=== PATIENT | male | born 1970 | race Caucasian/White ===

== ENCOUNTER 2017-07-20 08:09 | Emergency (ER) | payer SELFPAY ==
--- NOTE | 2017-07-20 09:14 | RAD ---
FRONTAL RADIOGRAPH PELVIS: Date: 07-20-17 Comparison: None. History: Fall, trauma, pain. FINDINGS: The pelvic ring appears intact. There is no widening of the sacroiliac joints or the pubic symphysis. The femoral heads project normally over their respected acetabulum. There is no displaced fracture s een. Spina bifida occulta is suspected at L5 with a transitional L5 vertebral body noted. IMPRESSION: No displaced fracture noted. POS: [facility]
[2017-07-20] MEDS ORDERED: Ibuprofen 200 MG TAB ONE (09:54)
== END 2017-07-20 10:05 | disposition home or self-care (01) ==
LOC: ERS 08:09
DX: S30.0XXA Contusion of lower back and pelvis, initial encounter (principal); I10 Essential (primary) hypertension; F17.210 Nicotine dependence, cigarettes, uncomplicated; Z79.82 Long term (current) use of aspirin; W10.9XXA Fall (on) (from) unspecified stairs and steps, initial encounter
CPT/HCPCS: 72170

== ENCOUNTER 2019-01-12 07:31 | Outpatient (CLI) | payer OTHER ==
[2019-01-12] MEDS ORDERED: Iopamidol 370 76% 100 ML VIAL ONE ×2 (09:00)
--- NOTE | 2019-01-12 09:24 | CT ---
CT ABDOMEN AND PELVIS WITH IV CONTRAST 01/12/2019 CLINICAL INFORMATION: Rectal cancer, colonic mass P COMPARISON: None. Technique: Multiple contiguous axial CT images are obtained through the abdomen and pelvis with IV contrast. Cor onal reformatted images are provided. FINDINGS: Lower Chest: No pulmonary nodule, mass, or pleural effusion is seen in either lung base. Vessels: Vascular calcifications are seen in the iliac arteries. Abdominal aorta is normal in caliber with minimal atherosclerotic plaque present. Abdomen: Portal vein:Patent Gallbladder: Decompressed. Liver: Tiny subcentimeter too small to characterize hypodense lesions in the medial segment left hepa tic lobe as well as in the lateral segment left hepatic lobe. Spleen: within normal limits. Pancreas: within normal limits. Adrenals: within normal limits. Kidneys: A small 1.3 cm fluid attenuation lesion is seen within the superior pole left kidney most co mpatible with a cyst. A tiny subcentimeter too small to characterize hypodense lesion is seen in the superior pole right kidney. Bowel: A definite mass involving the rectum is difficult to delineate; although, there does appear to be mild eccentric thickening present which may correspond to patient's known rectal cancer. However, this would be better evaluated with colonoscopy. Loops of small bowel are normal in caliber. There is suggested mild bowel wall thickening involving proximal loops of jejunum. This is probably attributable to peristalsis. Appendix: The appendix is visualized and normal in caliber. Peritoneum: No ascites or free air; no fluid collection. Mesentery and Retroperitoneum: No enlarged mesenteric or retroperitoneal lymph nodes. Abdominal Wall: within normal limits. Pelvis: Reproductive Organs: No pelvic masses. Pelvis within normal limits. Bladder: within normal limits. Bones: Degenerative changes are seen in the lumbar spine. No suspicious lytic or sclerotic osseous le sions are identified. There is fusion of the left lateral mass of L5 with S1. IMPRESSION: 1. Tiny subcentimeter too small to characterize hypodense lesions left hepatic lobe. 2. Subcentimeter too small to characterize hypodense lesion superior pole right kidney with superior pole left renal cyst. 3. A definite rectal mass is difficult to delineate, but there does appear to be mild eccentric thick ening in the region of the rectum which may correspond to patient's known rectal neoplasm. However, this would be better evaluated with colonoscopy. 4. No evidence of lymphadenopathy. 5. Prominent degenerative changes in the spine.
== END 2019-01-12 07:32 | disposition home or self-care (01) ==
LOC: SCSCT 07:31
PROVIDERS: ATTEND Emergency Medicine
DX: K63.89 Other specified diseases of intestine (principal); K76.9 Liver disease, unspecified; N28.9 Disorder of kidney and ureter, unspecified; N28.1 Cyst of kidney, acquired; M47.816 Spondylosis without myelopathy or radiculopathy, lumbar region
CPT/HCPCS: 74177; Q9967

== ENCOUNTER 2019-02-15 14:17 | Outpatient (CLI) | payer OTHER, SELFPAY ==
--- NOTE | 2019-02-15 15:58 | CT ---
CT CHEST WITH IV CONTRAST: HISTORY: Rectal cancer. Exam requested for staging. FINDINGS: No mediastinal, hilar or axillary mass or lymphadenopathy is seen. There are vascular calcifications without evidence of aneurysmal dilatation of the thoracic aorta. No pleural or pericardial effusions are seen. There is a 13 mm calcified nodule in the left upper lobe. No suspicious nodules are otherwi se seen. There are degenerative changes in the spine. Upper abdominal tomograms are stable compared t o the CT abdomen and pelvis from 01/12/2019. IMPRESSION: No evidence of metastatic disease. POS: [facility]
--- NOTE | 2019-02-16 10:04 | MRI ---
MRI PELVIS WITH AND WITHOUT CONTRAST: Date: 02/15/19 HISTORY: Rectal cancer. COMPARISON: CT abdomen/pelvis 01/12/19. TECHNIQUE: Multiplanar, multisequence MR images were obtained of the pelvis without and with contrast. FINDINGS: There is a mass in the anterior wall of the low rectum. This mass measures 4.4 cm in length. This mas s extends down to approximately 1.5 cm from the anal verge. This mass appears to be full thickness of the wall of the rectum without significant invasion of the mesorectal fat. There is a fat plane betw een this mass and the prostate, which was not definitely seen on the prior CT. No enlarged pelvic lymph nodes are seen. This mass abuts the posterior mesorectal fascia along the pe lvic floor as this mass is very low lying. No marrow signal abnormality is appreciated. IMPRESSION: Very low rectal cancer abuts the mesorectal fascia and is very near the anal verge. This is a T3aN0 l esion. POS: [facility]
== END 2019-02-15 14:18 | disposition home or self-care (01) ==
LOC: TBSIIMAG 14:17
PROVIDERS: ATTEND Internal Medicine Hematology & Oncology
DX: C20 Malignant neoplasm of rectum (principal)
CPT/HCPCS: 71260; 72197

== ENCOUNTER 2019-02-21 11:37 | Outpatient (CLI) | payer OTHER, SELFPAY ==
[2019-02-21 14:32] LABS: Anion Gap 12 mmol/L (10-20); BUN (Urea Nitrogen) 8 mg/dL (8.9-20.6); Calc. Creatinine Clearance 0 mL/min (70-130); Calcium 9.5 mg/dL (7.8-10.44); Carbon Dioxide 34 mmol/L (22-29); Chloride 87 mmol/L (98-107); Estimated GFR-MDRD Greater than 90; Glucose 68 mg/dL (70-105); Potassium 3.7 mmol/L (3.5-5.1); Sodium 129 mmol/L (136-145)
--- NOTE | 2019-02-21 15:35 | HP ---
HISTORY OF PRESENT ILLNESS: Milton Benoit is a 48-year-old male patient who Family Practice has seen and colonoscopy performed revealed a rectal mass 6 to 8 cm from the anal verge. Biopsy revealed malignant-appearing cells without definite invasion. Yesterday in the office, I saw him and I was able to break some fragments of polypoid tissue from the rectal mass and did a core biopsy and pathology reveals invasive adenocarcinoma. The patient has had a CAT scan chest, abdomen, and pelvis, as well as MRI of the pelvis revealing T3a N0 disease. He has seen Dr. Theodore and Dr. Perez, and plan is for neoadjuvant active therapy and plan is to place a MediPort to facilitate this. He understands risks and benefits of procedure. We will plan this under IV sedation or local anesthesia as an outpatient. MEDICATIONS: Losartan daily. PAST SURGICAL HISTORY: None, except for recent colonoscopy. SOCIAL HISTORY: Tobacco, 1-1/2 packs per day. Have encourage cessation. Alcohol, socially. The patient is unemployed. REVIEW OF SYSTEMS: Ten-point noncontributory. PHYSICAL EXAMINATION: VITAL SIGNS: Weight 175 pounds, 6 feet, 23 BMI. Blood pressure 136/81, pulse 83, temperature 98 degrees. HEAD, EARS, EYES, NOSE AND THROAT: Unremarkable. LUNGS: Clear to auscultation. CARDIAC: Regular rate and rhythm without murmur or gallop. ABDOMEN: Soft and nontender. RECTAL EXAM: Reveals a rectal mass anteriorly. There is a shelving edge. This is the full length of my examining finger from the anal verge, probably 6 to 8 cm. Anoscopy reveals some polypoid tissue on the surface, some of which was broke off and core biopsies obtained. Pathology revealing the above results. EXTREMITIES: Unremarkable. Groins without lymphadenopathy. ASSESSMENT AND PLAN: Rectal cancer. Plan, neoadjuvant therapy with chemoradiation therapy with Dr. Minh Theodore and Dr. Perez. We will plan placement of a MediPort to facilitate this. I will see him postoperatively after alejandro-adjunctive therapy for definitive low anterior resection. Job ID: [id number]
== END 2019-02-21 11:38 | disposition home or self-care (01) ==
LOC: LABBT 11:37
PROVIDERS: ATTEND Specialist
DX: Z01.818 Encounter for other preprocedural examination (principal); C20 Malignant neoplasm of rectum
CPT/HCPCS: 80048; 93005; 93010

== ENCOUNTER 2019-02-24 09:02 | Day surgery (SDC) | payer OTHER, SELFPAY ==
[2019-02-21 13:18] VITALS: BMI 23.7
[2019-02-24] MEDS ORDERED: Glycopyrrolate 0.4 MG/ 2 ML VIAL ONE (10:10)
[2019-02-24] MEDS ORDERED: Succinylcholine Chloride 20 MG/ML 10 ml SYRINGE FS ONE (10:10)
[2019-02-24] MEDS ORDERED: ePHEDrine/0.9% NaCl/PF SYRINGE 50 mg/10 ml ONE (10:10)
[2019-02-24] MEDS ORDERED: Rocuronium Bromide 10 MG/ML (10ML VIAL) ONE (10:10)
[2019-02-24] MEDS ORDERED: PROPOFOL 200 MG/20 ML VIAL ONE (10:10)
[2019-02-24] MEDS ORDERED: Lidocaine 1% PF 5 ML VIAL ONE (10:10)
[2019-02-24] MEDS ORDERED: Ondansetron PF 4 MG/2 ML Vial ONE (10:10)
[2019-02-24] MEDS ORDERED: Lidocaine 2% Jelly 5 ML TUBE ONE (10:33)
[2019-02-24] MEDS ORDERED: Fentanyl 100 MCG/2 ML VIAL ONE (10:33)
[2019-02-24] MEDS ORDERED: Lidocaine 2% PF 5 ML VIAL ONE (10:40)
[2019-02-24] MEDS ORDERED: Bupivacaine HCl 0.5%/Epinephrine 1:200,000/PF 30 ml Vial ONE (10:40)
--- NOTE | 2019-02-24 12:40 | OP ---
DATE OF PROCEDURE: 02/24/2019 PREOPERATIVE DIAGNOSIS: Rectal cancer in need of antineoplastic chemotherapy access. POSTOPERATIVE DIAGNOSIS: Rectal cancer in need of antineoplastic chemotherapy access. PROCEDURES PERFORMED: Right subclavian vein MediPort, low-profile PowerPort, fluoroscopy use. ANESTHESIA: General LMA (reflux) and 0.5% Marcaine with epinephrine, 30 mL mixed with 2% Xylocaine, 10 mL. DESCRIPTION OF PROCEDURE: The patient was taken to the operating room where under general anesthesia, neck and chest prepared with ChloraPrep and draped in routine fashion. Local anesthetic was infiltrated in the skin and subcutaneous tissue about the operative site. Infraclavicular approach used to cannulate the right subclavian vein and J-wire threaded, trocar catheter removed. Skin site was enlarged sharply and a subcutaneous pocket created with blunt and sharp dissection using cautery for hemostasis. Dilator and port sheath placed with J-wire in superior vena cava and dilator and J-wire removed, catheter tailored to length under fluoroscopic visualization, placing the tip in the optimal position in the superior vena cava. The catheter connected to the port, placed in subcutaneous pocket, secured with 2 interrupted suture of 3-0 Prolene. Subcutaneous tissue was approximated with 3-0 Monocryl, skin with subdermal 4-0 Monocryl and Dumfries glue applied. Fluoroscopic images revealed good MediPort and catheter placement. MediPort accessed with a Diamond needle, aspirating blood and flushed with heparinized saline solution. The patient tolerated the procedure well. Job ID: [id number]
--- NOTE | 2019-02-24 13:06 | RAD ---
XR Chest 1 View Portable History: MediPort placement Comparison: Chest CT February 15, 2019 Findings: Uncomplicated placement port catheter tip in the inferior SVC. Left upper lobe calcified gr anuloma. Mild reverse S-shaped scoliosis thoracic spine. Impression: Uncomplicated port catheter placement.
== END 2019-02-24 14:10 | disposition home or self-care (01) ==
LOC: SDC 09:02
PROVIDERS: ATTEND Specialist
PROC: 02HV33Z Insertion of Infusion Device into Superior Vena Cava, Percutaneous Approach (ICD-10-PCS; principal; 2019-02-24)
DX: C20 Malignant neoplasm of rectum (principal)
CPT/HCPCS: 71045; C1788; J0670; J0690; J1642; J2001; J3010

== ENCOUNTER 2019-03-07 09:50 | Day surgery (SDC) | payer SELFPAY ==
[~2019-03-07 09:50] MED LIST: DEXTROSE 5% IVPB SCH; Dexamethasone 10 MG in Sodium Chloride 0.9% 50 ML IVPB SCH; FLUOROURACIL IVPB SCH; LEUCOVORIN CALCIUM IVPB SCH; Leucovorin Calcium 350 MG, Leucovorin Calcium 50 MG in Dextrose 5% in Water 50 ML IVPB SCH; OXALIPLATIN IVPB SCH; Palonosetron HCl 0.25 MG in Sodium Chloride 0.9% 50 ML IVPB SCH; WATER IVPB SCH
[2019-03-07 10:55] VITALS: BP 145/80; TEMP 98.8
== END 2019-03-07 14:49 | disposition home or self-care (01) ==
LOC: ONC/OP 09:50
PROVIDERS: ATTEND Internal Medicine Hematology & Oncology
DX: Z51.11 Encounter for antineoplastic chemotherapy (principal); C20 Malignant neoplasm of rectum
CPT/HCPCS: 96367; 96375; 96413; 96415; 96417; J0640; J1100; J2469; J7070; J9190; J9263

== ENCOUNTER 2019-03-21 10:12 | Day surgery (SDC) | payer SELFPAY ==
[~2019-03-21 10:12] MED LIST changes: -LEUCOVORIN CALCIUM IVPB SCH
[2019-03-21] MEDS ORDERED: Sodium Chloride 0.9% 10 ML ONE (10:52)
[2019-03-21 11:41] VITALS: BP 127/66; TEMP 98.9
== END 2019-03-21 14:32 | disposition home or self-care (01) ==
LOC: ONC/OP 10:12
PROVIDERS: ATTEND Internal Medicine Hematology & Oncology
DX: Z51.11 Encounter for antineoplastic chemotherapy (principal); C20 Malignant neoplasm of rectum
CPT/HCPCS: 96367; 96375; 96413; 96415; 96417; J0640; J1100; J1642; J2469; J7070; J9190; J9263

== ENCOUNTER 2019-04-04 10:37 | Day surgery (SDC) | payer OTHER ==
[2019-04-04] MEDS ORDERED: Sodium Chloride 0.9% 20 ML ONE (10:52)
[2019-04-04 13:36] VITALS: BP 149/73; TEMP 98.3
== END 2019-04-04 15:13 | disposition home or self-care (01) ==
LOC: ONC/OP 10:37
PROVIDERS: ATTEND Internal Medicine Hematology & Oncology
DX: Z51.11 Encounter for antineoplastic chemotherapy (principal); C20 Malignant neoplasm of rectum
CPT/HCPCS: 96367; 96375; 96413; 96415; 96416; 96417; J0640; J1100; J1642; J2469; J7070; J9190; J9263

== ENCOUNTER 2019-04-20 10:29 | Day surgery (SDC) | payer OTHER ==
[2019-04-20] MEDS ORDERED: Sodium Chloride 0.9% 20 ML ONE (10:35)
[2019-04-20 11:52] VITALS: BP 177/92; TEMP 98.7
== END 2019-04-20 14:47 | disposition home or self-care (01) ==
LOC: ONC/OP 10:29
PROVIDERS: ATTEND Internal Medicine Hematology & Oncology
DX: Z51.11 Encounter for antineoplastic chemotherapy (principal); C20 Malignant neoplasm of rectum
CPT/HCPCS: 96366; 96375; 96413; 96415; 96416; 96417; J0640; J1100; J2469; J7070; J9190; J9263

== ENCOUNTER 2019-05-03 12:28 | Day surgery (SDC) | payer OTHER ==
[2019-05-03] MEDS ORDERED: Sodium Chloride 0.9% 30 ML ONE (12:45)
[2019-05-03 15:40] VITALS: BP 118/70; TEMP 98.6
== END 2019-05-03 15:58 | disposition home or self-care (01) ==
LOC: ONC/OP 12:28
PROVIDERS: ATTEND Internal Medicine Hematology & Oncology
DX: Z51.11 Encounter for antineoplastic chemotherapy (principal); C20 Malignant neoplasm of rectum
CPT/HCPCS: 96367; 96375; 96413; 96415; 96417; J0640; J1100; J2469; J7070; J9190; J9263

== ENCOUNTER 2019-05-17 10:50 | Day surgery (SDC) | payer OTHER ==
[2019-05-17] MEDS ORDERED: Sodium Chloride 0.9% 20 ML ONE (11:03)
[2019-05-17 11:39] VITALS: BP 122/70; TEMP 98.6
== END 2019-05-17 15:30 | disposition home or self-care (01) ==
LOC: ONC/OP 10:50
PROVIDERS: ATTEND Internal Medicine Hematology & Oncology
DX: Z51.11 Encounter for antineoplastic chemotherapy (principal); C20 Malignant neoplasm of rectum
CPT/HCPCS: 96367; 96375; 96413; 96415; 96417; J0640; J1100; J2469; J7070; J9190; J9263

== ENCOUNTER 2019-05-31 11:01 | Day surgery (SDC) | payer OTHER ==
[~2019-05-31 11:01] MED LIST changes: -Dexamethasone 10 MG in Sodium Chloride 0.9% 50 ML IVPB SCH
[2019-05-31] MEDS ORDERED: Sodium Chloride 0.9% 20 ML ONE (11:04)
[2019-05-31 15:57] VITALS: BP 137/88; TEMP 98.6
== END 2019-05-31 16:09 | disposition home or self-care (01) ==
LOC: ONC/OP 11:01
PROVIDERS: ATTEND Internal Medicine Hematology & Oncology
DX: Z51.11 Encounter for antineoplastic chemotherapy (principal); C20 Malignant neoplasm of rectum
CPT/HCPCS: 96375; 96413; 96415; 96417; J0640; J1100; J2469; J7070; J9190; J9263

== ENCOUNTER 2019-06-14 12:05 | Day surgery (SDC) | payer OTHER ==
[2019-06-14] MEDS ORDERED: LEUCOVORIN CALCIUM IVPB SCH (12:30)
[2019-06-14] MEDS ORDERED: DEXTROSE 5% IVPB SCH (12:30)
[2019-06-14] MEDS ORDERED: WATER IVPB SCH (12:30)
[2019-06-14] MEDS ORDERED: Sodium Chloride 0.9% 20 ML ONE (12:36)
[2019-06-14 17:40] VITALS: BP 118/72; TEMP 98.6
== END 2019-06-14 17:42 | disposition home or self-care (01) ==
LOC: ONC/OP 12:05
PROVIDERS: ATTEND Internal Medicine Hematology & Oncology
DX: Z51.11 Encounter for antineoplastic chemotherapy (principal); C20 Malignant neoplasm of rectum
CPT/HCPCS: 96367; 96375; 96413; 96415; 96417; J0640; J1100; J2469; J7070; J9190; J9263

== ENCOUNTER 2019-10-27 05:42 | Outpatient (CLI) | payer OTHER ==
[2019-10-27 12:42] LABS: Hemoglobin A1c 4.9 % (4.0-6.0)
[2019-10-27 12:49] LABS: #Lymphocytes 0.6 thou/uL (1.20-3.40); #Monocytes 0.7 thou/uL (0.11-0.59); %Basophils 0.3 % (0.0-1.0); %Eosinophils 0.4 % (0.0-10.0); %Lymphocytes 8.8 % (21.0-51.0); %Monocytes 11.5 % (0.0-10.0); %Neutrophils 78.9 % (42.0-75.0); Hemoglobin 14.5 g/dL (14.0-18.0); Mean Corpuscular HGB CONC 34.6 g/dL (32.0-36.0); Mean Corpuscular Hemoglobin 35.5 pg (27.0-31.0); Mean Platelet Volume 6.6 fL (7.4-10.4); Platelet Count 170 thou/uL (130-400); RBC Distribution Width 11.6 % (11.5-14.5); Red Blood Cell (RBC) Count 4.09 mill/uL (4.70-6.10); White Blood Cell (WBC) Count 6.3 thou/uL (4.8-10.8)
[2019-10-28 12:09] LABS: SARS-CoV-2 MS2 Positive; SARS-CoV-2 N Gene Negative; SARS-CoV-2 S Gene Negative; SARS-CoV-2 orf1ab Negative
== END 2019-10-27 05:43 | disposition home or self-care (01) ==
LOC: LABBT 05:42
PROVIDERS: ATTEND Specialist
DX: Z01.812 Encounter for preprocedural laboratory examination (principal); Z11.59 Encounter for screening for other viral diseases; C20 Malignant neoplasm of rectum; Z72.0 Tobacco use
CPT/HCPCS: 82378; 83036; 85025; 87635; U0003

== ENCOUNTER 2019-10-27 10:30 | Inpatient (IN) | payer OTHER ==
[2019-10-24 14:13] VITALS: BMI 27.1
--- NOTE | 2019-10-26 14:18 | HP ---
HISTORY OF PRESENT ILLNESS: Milton Benoit is a 48-year-old male patient with rectal cancer. I last saw him on 09/07/2019. He has been followed by Dr. Perez and Dr. Theodore. The patient underwent a biopsy, revealing rectal cancer with colonoscopy performed, undergoing MRI on 02/16/2020, revealing T3a N0 rectal cancer with fatty tissue plane between the rectal mass and prostate. On exam, that seemed to be about 4 cm from the anus. The patient smoked at that time a pack a day. He has since quit smoking. He was complaining some dyspnea at the end. The patient had a biopsy that I performed in the office. CT scan, MRI, and chest x-ray obtained by Dr. Theodore. I placed a MediPort. The patient was seen by Dr. Perez, undergoing radiation therapy on 07/10/2019 through 08/18/2019, 39 elapsed days. He completed chemotherapy with Xeloda and FOLFOX. CT scan abdomen in 12/2018 demonstrated densities, too small to characterize liver. He underwent neoadjuvant therapy. The patient used to work [employer] and has been unemployed. Family history is significant for two aunts with breast cancer, two great uncles with throat cancers, a grandfather with lung cancer. His CT scan of the chest and MRI did not reveal any evidence of metastatic disease. Laboratories on 09/06/2019, hemoglobin 13. Comprehensive metabolic profile essentially normal. The patient in the interim has seen Dr. Minh Monsivais with a cardiac stress test with a normal EF, greater than 55%. No ischemia. He is endorsed for further surgery without further workup, will be seen by Cardiology as needed. He has stage IIA T3 N0 M0 adenocarcinoma of the rectum. When I last saw him in the office on 09/07/2019, rectal exam revealed rectal mass at the tip of my examining finger, it is feeling smaller than past exam. He is followed by [facility]. Plan at this time is for mid 10/2019 laparoscopic-assisted low-anterior resection with either abdominoperineal resection versus coloproctostomy with protective ileostomy. We will plan this under general anesthesia and TAP block. Risks of infection, bleeding, reoperation, anastomotic leakage discussed. Questions answered. Encouraged him to completely quit smoking. He will undergo a bowel prep the day prior. MEDICATIONS: 1. Losartan. 2. Chlorthalidone. PAST MEDICAL HISTORY: 1. Hypertension. 2. Rectal cancer. 3. Tobacco use. PAST SURGICAL HISTORY: Noncontributory except for MediPort, rectal biopsy, and colonoscopy. SOCIAL HISTORY: Tobacco, less than one pack per day. Alcohol, socially. REVIEW OF SYSTEMS: Ten-point noncontributory. FAMILY HISTORY: As noted above. REVIEW OF SYSTEMS: As noted above. PHYSICAL EXAMINATION: VITAL SIGNS: Blood pressure 137/80, heart rate 87, temperature 97.9 degrees, weight 197 pounds, height 72 inches. HEAD, EARS, EYES, NOSE, AND THROAT: Unremarkable. LUNGS: Clear to auscultation. CARDIAC: Regular rate and rhythm without murmur or gallop. ABDOMEN: Soft and nontender. EXTREMITIES: Unremarkable. RECTAL: Deferred today. When I last saw him 2 weeks ago, rectal exam revealed a firm mass in the rectal on the tip of my index examining finger. ASSESSMENT: Rectal cancer. PLAN: Laparoscopic-assisted low anterior resection, possible protective ileostomy or APR with permanent colostomy. He understands risks and benefits and consents. Job ID: [id number]
[2019-11-01] MEDS ORDERED: Gabapentin 300 MG CAP ONE (06:48)
[2019-11-01] MEDS ORDERED: Ketorolac Tromethamine 30 MG/ML VIAL ONE (06:48)
[2019-11-01] MEDS ORDERED: Acetaminophen 500 MG TAB ONE (06:48)
[2019-11-01] MEDS ORDERED: HYDROmorphone 0.5 MG/0.5 ML SYRINGE ONE ×2 (06:54→14:55)
[2019-11-01] MEDS ORDERED: Fentanyl 100 MCG/2 ML VIAL ONE ×4 (06:54→14:45)
[2019-11-01] MEDS ORDERED: Ketamine 50 MG/ML (10ML VIAL) ONE (06:55)
[2019-11-01] MEDS ORDERED: Midazolam HCl 2 mg/2 ml Vial ONE (07:03)
[2019-11-01] MEDS ORDERED: Meropenem 2 GM in Sodium Chloride 0.9% 100 ML IVPB SCH (07:15)
[2019-11-01 07:21] LABS: ALT (SGPT) 20 U/L (8-55); AST (SGOT) 26 U/L (5-34); Albumin 4.1 g/dL (3.5-5.0); Alkaline Phosphatase 95 U/L (40-110); Anion Gap 14 mmol/L (10-20); BUN (Urea Nitrogen) 4 mg/dL (8.9-20.6); Bilirubin, Total 0.6 mg/dL (0.2-1.2); Calc. Creatinine Clearance 159 mL/min (70-130); Calcium 9.4 mg/dL (7.8-10.44); Carbon Dioxide 22 mmol/L (22-29); Chloride 101 mmol/L (98-107); Estimated GFR-MDRD Greater than 90; Globulin 3.3 g/dL (2.4-3.5); Glucose 97 mg/dL (70-105); Potassium 4.2 mmol/L (3.5-5.1); Protein, Total 7.4 g/dL (6.0-8.3); Sodium 133 mmol/L (136-145)
[2019-11-01] MEDS ORDERED: Rocuronium Bromide 10 MG/ML (10ML VIAL) ONE (10:37)
[2019-11-01] MEDS ORDERED: Dexamethasone 20 MG/5 ML VIAL ONE (10:37)
[2019-11-01] MEDS ORDERED: Ondansetron PF 4 MG/2 ML Vial ONE (10:37)
[2019-11-01] MEDS ORDERED: PHENYLEPHRINE-NS 100 MCG/ML 10 ML SYRINGE ONE (10:37)
[2019-11-01] MEDS ORDERED: EPHEDRINE 25 MG/5 ML SYRINGE ONE (10:37)
[2019-11-01] MEDS ORDERED: Lidocaine 1% PF 5 ML VIAL ONE (10:37)
[2019-11-01] MEDS ORDERED: Bupivacaine HCl 0.5%/Epinephrine 1:200,000/PF 30 ml Vial ONE (10:37)
[2019-11-01] MEDS ORDERED: PROPOFOL 200 MG/20 ML VIAL ONE (10:37)
[2019-11-01] MEDS ORDERED: MEROPENEM 1 GM/50 ML 1 GM in Premix Bag 1 BAG IVPB SCH (11:30)
--- NOTE | 2019-11-01 12:51 | EKG ---
Test Reason : PREOP Blood Pressure : / mmHG Vent. Rate : 065 BPM Atrial Rate : 065 BPM P-R Int : 148 ms QRS Dur : 102 ms QT Int : 412 ms P-R-T Axes : 023 075 064 degrees QTc Int : 428 ms Normal sinus rhythm Normal ECG When compared with ECG of 21-FEB-2019 13:50, No significant change was found Confirmed by HARMEET GARCIA, SRegan (4) on 11/01/2019 12:51:01 PM Referred By: MAX Confirmed By:DR. Alexa GA MD
[2019-11-01] MEDS ORDERED: PACU-Morphine 4MG/ML VIAL SLOW IVP PRN (13:24)
[2019-11-01] MEDS ORDERED: Ondansetron HCl/PF 4 MG/2 ML Vial IVP PRN (13:24)
[2019-11-01] MEDS ORDERED: Promethazine HCl 25 MG/ML VIAL IM PRN ×2 (13:24→14:49)
[2019-11-01] MEDS ORDERED: HYDROmorphone 2 MG/ML VIAL SLOW IVP PRN (13:24)
[2019-11-01] MEDS ORDERED: Promethazine HCl 25 MG/ML VIAL SLOW IVP PRN (13:24)
[2019-11-01] MEDS ORDERED: Morphine 4 MG/ML VIAL SLOW IVP PRN ×2 (13:30→15:00)
[2019-11-01] MEDS ORDERED: Ondansetron PF 4 MG/2 ML Vial IVP PRN ×2 (13:30→14:49)
[2019-11-01] MEDS ORDERED: Morphine 10 MG/ML VIAL SLOW IVP PRN ×2 (13:30→15:00)
[2019-11-01] MEDS ORDERED: Morphine 2 MG/ML SYRINGE SLOW IVP PRN ×2 (13:30→15:00)
[2019-11-01] MEDS ORDERED: hydrALAZINE 20 MG/ML VIAL SLOW IVP PRN (13:30)
[2019-11-01] MEDS ORDERED: Acetaminophen 500 MG TAB PO PRN (13:35)
--- NOTE | 2019-11-01 14:33 | OP ---
DATE OF PROCEDURE: 11/01/2019 PREOPERATIVE DIAGNOSIS: Rectal cancer status post radiation and chemotherapy. POSTOPERATIVE DIAGNOSES: 1. Rectal cancer status post radiation and chemotherapy. 2. Tumor too low for salvage of anus. PROCEDURES PERFORMED: 1. Laparoscopic mobilization of the transverse colon, splenic flexure, and left colon. 2. Infraumbilical laparotomy. 3. Mobilization of the rectum. 4. Flexible endoscopy to identify the tumor, which was too close the anus, requiring abdominoperineal resection with permanent colostomy. ANESTHESIA: General and TAP block. ESTIMATED BLOOD LOSS: 600 mL. BLOOD TRANSFUSED: None. DESCRIPTION OF PROCEDURE: The patient was taken to the operating room where under general anesthesia and TAP block in the dorsal lithotomy position, abdomen was prepared with ChloraPrep. The buttocks, perineum, and thighs were prepared with Betadine and draped in routine fashion. Infraumbilical incision made, pneumoperitoneum to 15 mmHg was obtained with a Veress needle, replaced with a 5 port. Right subcostal incision was made, left subcostal incision was made, right lower quadrant and left lower quadrant incision made and 5 ports placed. LigaSure was used to dissect the omentum from the transverse colon from midline distally towards the splenic flexure, mobilizing the splenic flexure and descending colon. Once this was accomplished, the infraumbilical incision made from the umbilicus to the pubis, carried down to skin and subcutaneous tissue, and the mesentery of the sigmoid colon dissected free. Left ureter kept free of harm as the inferior mesenteric vessels divided between clamps and ligated with 2-0 silk ties. At the junction of the descending and sigmoid colon, the colon was divided with a SHERRILL stapler. The colon dissected down to the pelvis, taking care to protect the ureters. The peritoneum was then scored in the reflection between the bladder and the rectosigmoid. The rectum was mobilized, dividing the stalks, mesorectal dissection using the LigaSure and cautery. This was dissected free, reached the low in the pelvis as I could reach as the patient was obese. I reached down below the coccyx. Could not feel the tumor mass that was appreciated preoperatively. Thus, flexible endoscopy undertaken. The endoscope lights were out. Proctoscope lights were out. I had obtained a flexible sigmoidoscope, had trouble with the air insufflation, finally achieved a functioning endoscope, placed per anus into the rectum. I have passed the scope up to 25 cm and noted normal mucosa, so I withdrew the scope anteriorly. I could see change in the mucosa from the tumor. They responded to radiation therapies. Scope was withdrawn and the mucosal changes were present, too close to the anus for salvage. The staple would not reach down below the changes of the mucosal abnormality. Thus, APR was undertaken. An elliptical incision was made around the anus, carried down to skin and subcutaneous tissue and the perirectal tissue dissected free up towards the pelvic floor. Pelvis dissected free. After prolonged dissection, we finally mobilized the rectum circumferentially adjacent to the prostate anteriorly and lateral stalks. Once it was mobilized, the specimen was removed. Hemostasis was gained with cautery. Area irrigated. At this point, the pelvic floor closed with continuous sutures of 2-0 Vicryl in 3 layers. Skin approximated with continuous subcu suture of 4-0 Monocryl after a drain placed in the pelvis from the left thigh. It was secured with 3-0 nylon suture. Dermabond placed around the anal sutures subcuticular closure. Attention was then turned to the abdomen when my gown and gloves were changed and pelvis irrigated. Good hemostasis was ensured. Peritoneum closed and the pelvis with continuous suture of 2-0 Vicryl. Once this was accomplished, the colon adequately mobilized without tension, reached easily for a colostomy, even though he had a very thick abdominal wall due to obesity. A circular defect of skin removed at the chosen colostomy site in the left lower quadrant, carried down to skin and subcutaneous tissue, identifying the anterior rectus fascia, making a cruciate incision, reflecting the rectus muscle medially and laterally in the colon and this was then dilated to 3 fingerbreadths and the colon brought out through this defect. Our gloves and gowns had been changed. Abdominal cavity irrigated. Irrigant evacuated. Good hemostasis noted. Sponge, needle, and instrument counts were correct. The midline fascia closed with continuous suture of #1 PDS. Skin and subcutaneous tissues irrigated. Skin approximated with leann. Sterile dressing applied. Colostomy maturation undertaken, removing the staple line and putting 4 Travis sutures of 3-0 Vicryl to gela the colostomy and simple suture 3-0 Vicryl to complete the colostomy maturation. Colostomy appliance secured. The patient tolerated the procedure well. Job ID: [id number]
[2019-11-01] MEDS ORDERED: fentaNYL Citrate/PF 2,000 MCG in Sodium Chloride 0.9% 60 ML IV PRN (14:49)
[2019-11-01] MEDS ORDERED: diphenhydrAMINE 50 MG/ML VIAL IM PRN (14:49)
[2019-11-01] MEDS ORDERED: Zolpidem Tartrate 5 MG TAB PO PRN (14:49)
[2019-11-01] MEDS ORDERED: Naloxone HCl 0.4 mg/ml Vial IV PRN (14:49)
[2019-11-01] MEDS ORDERED: diphenhydrAMINE 50 MG/ML VIAL IVP PRN (14:49)
[2019-11-01] MEDS ORDERED: diphenhydrAMINE 25 MG CAP PO PRN (14:49)
[2019-11-01] MEDS ORDERED: HYDROcodone/Acetaminophen 7.5/325 mg Tablet PO PRN ×2 (14:59)
[2019-11-01] MEDS ORDERED: Communication Order-Pharmacy FS SCH (15:00)
[2019-11-01] MEDS: Gabapentin 300 MG CAP PO SCH ×2 (16:29→20:18)
[2019-11-01] MEDS: Ketorolac Tromethamine 30 MG/ML VIAL IVP SCH ×2 (18:09→23:12)
[2019-11-01] MEDS: Lactated Ringer's 1,000 ML IV SCH ×2 (18:09→23:13)
[2019-11-01] MEDS: Famotidine/PF 20 mg/2ml Vial SLOW IVP SCH (20:18)
[2019-11-01] MEDS: Enoxaparin Sodium 40 MG/0.4 ML SYRINGE SC SCH (21:27)
[2019-11-02 05:50] LABS: #Lymphocytes 0.4 thou/uL (1.20-3.40); #Monocytes 0.7 thou/uL (0.11-0.59); #Neutrophils 4.8 thou/uL (1.40-6.50); %Eosinophils 0.1 % (0.0-10.0); %Lymphocytes 7.1 % (21.0-51.0); %Monocytes 11.2 % (0.0-10.0); %Neutrophils 81.6 % (42.0-75.0); Hemoglobin 9.8 g/dL (14.0-18.0); Mean Corpuscular HGB CONC 34.9 g/dL (32.0-36.0); Mean Corpuscular Hemoglobin 36.2 pg (27.0-31.0); Mean Platelet Volume 6.3 fL (7.4-10.4); Platelet Count 146 thou/uL (130-400); RBC Distribution Width 11.7 % (11.5-14.5); Red Blood Cell (RBC) Count 2.72 mill/uL (4.70-6.10); White Blood Cell (WBC) Count 5.9 thou/uL (4.8-10.8)
[2019-11-02 06:08] LABS: Anion Gap 11 mmol/L (10-20); BUN (Urea Nitrogen) 6 mg/dL (8.9-20.6); Calc. Creatinine Clearance 174 mL/min (70-130); Calcium 8.2 mg/dL (7.8-10.44); Carbon Dioxide 24 mmol/L (22-29); Chloride 98 mmol/L (98-107); Estimated GFR-MDRD Greater than 90; Glucose 105 mg/dL (70-105); Potassium 4.1 mmol/L (3.5-5.1); Sodium 129 mmol/L (136-145)
[2019-11-02] MEDS: Ketorolac Tromethamine 30 MG/ML VIAL IVP SCH ×3 (06:12→17:44)
[2019-11-02] MEDS: Lactated Ringer's 1,000 ML IV SCH (07:33)
[2019-11-02] MEDS ORDERED: traMADol HCl 50 MG TAB PO PRN (08:34)
[2019-11-02] MEDS ORDERED: Sodium Chloride 0.9% 1,000 ML IV SCH (08:45)
[2019-11-02] MEDS: Gabapentin 300 MG CAP PO SCH ×3 (08:49→19:59)
[2019-11-02] MEDS: Chlorthalidone 25 MG TAB PO SCH (08:49)
[2019-11-02] MEDS: Famotidine/PF 20 mg/2ml Vial SLOW IVP SCH (08:49)
[2019-11-02] MEDS: Losartan 25 MG TAB PO SCH (08:49)
[2019-11-02] MEDS ORDERED: Prevnar 13-Val Conj/PF 0.5 ML SYRINGE IM ONE (09:00)
[2019-11-02] MEDS ORDERED: HYDROcodone/Acetaminophen 7.5/325 mg Tablet PO PRN ×2 (13:31)
--- NOTE | 2019-11-02 14:40 | PRG ---
DATE OF SERVICE: SUBJECTIVE: Milton Benoit is doing well today. He had an APR yesterday with a permanent colostomy. storage brine worker to see him to arrange outpatient stoma therapy. Wound Care is to see him today to perform stoma teaching. The patient is tolerating his full liquid diet. OBJECTIVE: VITAL SIGNS: Temperature 97.8 degrees, pulse 71, blood pressure 117/51. LUNGS: Clear to auscultation. CARDIAC: Regular rate and rhythm without murmur or gallop. ABDOMEN: Soft. Colostomy healthy. Midline wound looks good. He has had some bleeding, but this is diminishing. I had put sutures in the skin at several foci last night. The bleeding has diminished, although not ceased. When last checked, there was no active bleeding noted. LABORATORY DATA: White count is 5, hemoglobin 9.8 this morning. Sodium 129, BUN 6, creatinine 0.66. ASSESSMENT AND PLAN: Rectal cancer, status post neoadjuvant therapy and more recent abdominoperineal resection. The patient is doing well. He has a Narvaez in place. We will remove that in the morning. Awaiting stoma therapist visit for education. Arrange outpatient stoma therapy for education and support post discharge. Hopefully, he will be ready for discharge tomorrow. He has serosanguineous drainage from his pelvic drain, which he will probably go home with. Job ID: [id number]
[2019-11-02] MEDS: traMADol HCl 50 MG TAB PO PRN (16:47)
[2019-11-02 18:08] LABS: #Lymphocytes 0.4 thou/uL (1.20-3.40); #Monocytes 0.4 thou/uL (0.11-0.59); #Neutrophils 3.1 thou/uL (1.40-6.50); %Eosinophils 0.6 % (0.0-10.0); %Monocytes 9.8 % (0.0-10.0); %Neutrophils 78.6 % (42.0-75.0); Hemoglobin 8.7 g/dL (14.0-18.0); Mean Corpuscular HGB CONC 34.5 g/dL (32.0-36.0); Mean Corpuscular Hemoglobin 35.6 pg (27.0-31.0); Platelet Count 121 thou/uL (130-400); RBC Distribution Width 11.5 % (11.5-14.5); Red Blood Cell (RBC) Count 2.45 mill/uL (4.70-6.10)
[2019-11-02] MEDS: Enoxaparin Sodium 40 MG/0.4 ML SYRINGE SC SCH (19:59)
[2019-11-03] MEDS: Ketorolac Tromethamine 30 MG/ML VIAL IVP SCH ×3 (00:02→11:56)
[2019-11-03] MEDS: traMADol HCl 50 MG TAB PO PRN ×2 (00:03→11:56)
[2019-11-03 05:13] LABS: #Lymphocytes 0.5 thou/uL (1.20-3.40); #Monocytes 0.5 thou/uL (0.11-0.59); #Neutrophils 2.8 thou/uL (1.40-6.50); %Basophils 0.1 % (0.0-1.0); %Lymphocytes 13.1 % (21.0-51.0); %Monocytes 13.1 % (0.0-10.0); %Neutrophils 72.6 % (42.0-75.0); Hemoglobin 8.7 g/dL (14.0-18.0); Mean Corpuscular HGB CONC 35.1 g/dL (32.0-36.0); Mean Corpuscular Hemoglobin 36.3 pg (27.0-31.0); Mean Platelet Volume 6.2 fL (7.4-10.4); Platelet Count 123 thou/uL (130-400); RBC Distribution Width 11.8 % (11.5-14.5); Red Blood Cell (RBC) Count 2.39 mill/uL (4.70-6.10); White Blood Cell (WBC) Count 3.8 thou/uL (4.8-10.8)
[2019-11-03 05:35] LABS: Anion Gap 7 mmol/L (10-20); BUN (Urea Nitrogen) 4 mg/dL (8.9-20.6); Calc. Creatinine Clearance 174 mL/min (70-130); Carbon Dioxide 30 mmol/L (22-29); Chloride 99 mmol/L (98-107); Estimated GFR-MDRD Greater than 90; Glucose 79 mg/dL (70-105); Potassium 4.2 mmol/L (3.5-5.1); Sodium 132 mmol/L (136-145)
[2019-11-03] MEDS: Losartan 25 MG TAB PO SCH (08:19)
[2019-11-03] MEDS: Gabapentin 300 MG CAP PO SCH (08:19)
[2019-11-03] MEDS: Chlorthalidone 25 MG TAB PO SCH (08:19)
[2019-11-03 16:03] VITALS: BP 103/67; TEMP 97.9
--- NOTE | 2019-11-03 20:23 | DIS ---
DATE OF ADMISSION: 11/01/2019 DATE OF DISCHARGE: 11/03/2019 DISCHARGE DIAGNOSES: Rectal cancer, tobacco abuse. PROCEDURES DURING THIS HOSPITALIZATION: Laparoscopic-assisted mobilization of splenic flexure with laparotomy, intraoperative endoscopy, abdominoperineal resection, pathology is pending. No tumor too close to the anus for clear margins and anal salvage. Permanent colostomy. Wound care appointment with [facility] stoma therapist next week. Follow up in my office next week for TERRENCE removal. HISTORY: Milton Benoit, two pack-a-day smoker, cut down to less than a pack a day, underwent the above operation, APR, colostomy. Postoperatively, he did well, convalesced on diet. He is sent home with a TERRENCE drain, which he was instructed on management outpatient. Inpatient stoma therapy education given. Wound looked good, had some bleeding perioperatively, but it is slowing down. Discharge hemoglobin 8.7. Repeat CEA level 3.1, on initial presentation 5.78. Followup appointment with Dr. Caldera next week for staple removal and drain removal. Follow up with Dr. Theodore, Oncology in the next week or two. No lifting over 25 pounds. He will cover his wound as necessary, leave it open when able. He can shower, pat the wound dry. Job ID: [id number]
--- NOTE | 2019-11-04 03:46 | PQF ---
CLINICAL DOCUMENTATION CLARIFICATION FORM: Dear : Alford. Perez Date / Time: 11/04/2019343 Please exercise your independent, professional judgment in responding to the clarification form. Clinical indicators are provided on the bottom of this form for your review Please check appropriate box(es): [ ] Associated Diagnosis: Hyponatremia [ ] Abnormal laboratory findings not clinically significant [ ] Other diagnosis [ ] Unable to determine In addition, please specify: Present on Admission (POA): [ ] Yes [ ] No [ ] Unable to determine Physician Signature: Date/Time: For continuity of documentation, please document condition throughout progress notes and discharge summary. Thank You. To be completed by CDI/Coding staff for physician review: Present Clinical Indicators - Signs / Symptoms / Labs Results and Location in Medical Record [X] Sodium 133 Laboratory Chemistry 10/31 [X] Sodium 129 Laboratory Chemistry 11/01 [X] Sodium 132 Laboratory Chemistry 11/02 [X] Estimated blood loss 600 ml Operative report 10/31 Dr Caldera Present Risk Factors Results and Location in Medical Record [X] Rectal cancer H&P p2 10/31 Dr Caldera [X] Hypertension H&P p2 10/31 Dr Caldera [X] Tobacco use H&P p2 10/31 Dr Caldera [X] s/p Abdominoperineal resection Operative report 10/31 Dr Caldera Present Treatments Results and Location in Medical Record [X] Series of electrolyte labs Laboratory Chemistry 10/31 [X] IVF Sodium Chloride 1 L MAR 11/01 CDS/Inclusion [employer] Education Teacher Signature: Malena Wolf Phone #: [phone] Date/Time: 11/04/2019343 This is a permanent part of the Medical Record [facility]
[2019-11-05] MEDS ORDERED: Ibuprofen 600 MG TAB PO PRN
== END 2019-11-03 16:18 | disposition home or self-care (01) | DRG 331 ==
LOC: SURG A 11-01 06:00 → EDSTATUS 11-01 10:30 → SURG A 11-01 15:47
PROVIDERS: ADMIT Specialist; ATTEND Specialist
PROC: 0DBP0ZZ Excision of Rectum, Open Approach (ICD-10-PCS; principal; 2019-11-01)
PROC: 0D1E0Z4 Bypass Large Intestine to Cutaneous, Open Approach (ICD-10-PCS; 2019-11-01)
PROC: 0DJD4ZZ Inspection of Lower Intestinal Tract, Percutaneous Endoscopic Approach (ICD-10-PCS; 2019-11-01)
PROC: 0DJD8ZZ Inspection of Lower Intestinal Tract, Via Natural or Artificial Opening Endoscopic (ICD-10-PCS; 2019-11-01)
DX: C20 Malignant neoplasm of rectum (principal); I10 Essential (primary) hypertension; E66.9 Obesity, unspecified; Z68.27 Body mass index [BMI] 27.0-27.9, adult; Z87.891 Personal history of nicotine dependence; Z79.899 Other long term (current) drug therapy
CPT/HCPCS: 36415; 36416; 80048; 80053; 82378; 85025; 88309; 93005; 93010; J0670; J1100; J1170; J1200; J1650; J1885; J2250; J2405; J2704; J3010; S0028

== ENCOUNTER 2020-02-01 07:39 | Outpatient (CLI) | payer OTHER ==
[2020-02-01 15:12] LABS: Hemoglobin 14.2 g/dL (14.0-18.0); Mean Corpuscular HGB CONC 33.4 g/dL (32.0-36.0); Mean Corpuscular Hemoglobin 27.7 pg (27.0-31.0); Mean Platelet Volume 7.7 fL (7.4-10.4); Platelet Count 276 thou/uL (130-400); RBC Distribution Width 15.6 % (11.5-14.5); Red Blood Cell (RBC) Count 5.12 mill/uL (4.70-6.10); White Blood Cell (WBC) Count 6.2 thou/uL (4.8-10.8)
[2020-02-01 15:24] LABS: Anion Gap 15 mmol/L (10-20); BUN (Urea Nitrogen) 6 mg/dL (8.9-20.6); Calc. Creatinine Clearance 0 mL/min (70-130); Calcium 9.3 mg/dL (7.8-10.44); Carbon Dioxide 22 mmol/L (22-29); Chloride 99 mmol/L (98-107); Estimated GFR-MDRD Greater than 90; Glucose 112 mg/dL (70-105); Potassium 3.8 mmol/L (3.5-5.1); Sodium 132 mmol/L (136-145)
--- NOTE | 2020-02-01 18:14 | EKG ---
Test Reason : PREOP Blood Pressure : / mmHG Vent. Rate : 090 BPM Atrial Rate : 090 BPM P-R Int : 136 ms QRS Dur : 092 ms QT Int : 362 ms P-R-T Axes : 050 083 080 degrees QTc Int : 442 ms Normal sinus rhythm Nonspecific ST-T changes Confirmed by DR. Tea KATZ (3) on 02/01/2020 6:14:02 PM Referred By: MAX Confirmed By:DR. Tea KATZ
[2020-02-02 12:27] LABS: SARS-CoV-2 MS2 Positive; SARS-CoV-2 N Gene Negative; SARS-CoV-2 S Gene Negative; SARS-CoV-2 by NAA Not Detected (NotDetected); SARS-CoV-2 orf1ab Negative
== END 2020-02-01 07:40 | disposition home or self-care (01) ==
LOC: LABBT 07:39
PROVIDERS: ATTEND Specialist
DX: Z01.818 Encounter for other preprocedural examination (principal); L72.3 Sebaceous cyst; Z20.828 Contact with and (suspected) exposure to other viral communicable diseases
CPT/HCPCS: 80048; 85027; 87635; 93005; 93010; U0003

== ENCOUNTER 2020-02-06 09:46 | Day surgery (SDC) | payer OTHER ==
[2020-02-02 12:21] VITALS: BMI 27.1
--- NOTE | 2020-02-05 15:38 | HP ---
HISTORY OF PRESENT ILLNESS: Milton Benoit is a 49-year-old male patient, history of low rectal cancer, had a MediPort placed in February 2019, underwent alejandro-adjunctive therapy, subsequently undergoing on November 01, 2019, exploration revealing the cancer to be too low to be addressed without a colostomy. Thus, he underwent abdominoperineal resection. Pathology revealing residual adenocarcinoma, moderately differentiated, too small to be assessed as there were small tumor glands dispersed in the tumor bed, 1.5 cm block. It was extended to the muscularis propria. No lymphovascular invasion noted, 13 nodes negative, T2 N0 M0. The patient is followed by Dr. Theodore. He has an appointment on February 04 to evaluate evidence of any recurrent disease, although he has been asymptomatic. He has had some perineal pain that is improving. This is more intermittent. His surgical wound midline is well healed. His colostomy is healthy. A few weeks ago, the patient has suffered a myocardial infarction and was seen at [facility] by Dr. Dsouza, after he sat on his porch and stood up and had chest pain. He had ST-elevation OK and a stent placed to LAD diagonal. The patient has appointment to see Dr. Dsouza on February 04. The patient today on followup was noted to have scrotal cysts that were bothering him. He has had one that he is concerned about. This is about 3 cm, it is indurated. Bactrim was called into his pharmacy, [facility]. He will see Dr. Dsouza for cardiac clearance prior to excision of not only this scrotal sebaceous cyst, but also two others. I have reassured him this is not cancer. He is given Bactrim for 10 days, awaiting cardiac clearance evaluation after myocardial infarction. ALLERGIES: NONE. SOCIAL HISTORY: History of tobacco use, less than a pack a day. Alcohol, socially. PAST SURGICAL HISTORY: MediPort placement, rectal biopsy, colonoscopy, abdominoperineal resection. PAST MEDICAL HISTORY: Hypertension, rectal cancer status post APR, history of tobacco abuse, history of coronary artery disease, recent myocardial infarction, status post stent to LAD. REVIEW OF SYSTEMS: Ten-point noncontributory. PHYSICAL EXAMINATION: VITAL SIGNS: 200 pounds, 72 inches, 27 BMI. 197/92, 98, 97.5 degrees. HEAD, EARS, EYES, NOSE, AND THROAT: Unremarkable. LUNGS: Clear to auscultation. CARDIAC: Regular rate and rhythm without murmur or gallop. ABDOMEN: Soft. Nontender. Colostomy, healthy in left lower quadrant, well-healed midline incision without hernia. Perineal wound well healed. Scrotum reveals a 3.5 cm sebaceous cyst, inferiorly, mid scrotum. He has two other smaller sebaceous cysts about 2 cm. This sebaceous cyst is slightly tender and regular. ASSESSMENT AND PLAN: 1. Sebaceous cyst of scrotum. Plan excision after cardiac evaluation. I would continue Plavix and aspirin. He does not need to hold these perioperatively. Once obtained cardiac clearance from Dr. Dsouza, we will proceed with excision as an outpatient. I think this is low risk, but considering his recent myocardial infarction, we will await cardiac clearance. 2. Tobacco use. 3. History of rectal cancer and APR. Job ID: [id number]
[~2020-02-06 09:46] MED LIST changes: -DEXTROSE 5% IVPB SCH; -FLUOROURACIL IVPB SCH; -Leucovorin Calcium 350 MG, Leucovorin Calcium 50 MG in Dextrose 5% in Water 50 ML IVPB SCH; +Lidocaine 1% PF 5 ML VIAL ONE; -OXALIPLATIN IVPB SCH; +PROPOFOL 200 MG/20 ML VIAL ONE; -Palonosetron HCl 0.25 MG in Sodium Chloride 0.9% 50 ML IVPB SCH; -WATER IVPB SCH
[2020-02-06] MEDS ORDERED: Acetaminophen 500 MG TAB ONE (10:21)
[2020-02-06] MEDS ORDERED: Ketorolac Tromethamine 30 MG/ML VIAL ONE (10:21)
[2020-02-06] MEDS ORDERED: Bupivacaine PF 0.5% 30 ML VIAL ONE (12:23)
[2020-02-06] MEDS ORDERED: Bupivacaine HCl 0.5%/Epinephrine 1:200,000/PF 30 ml Vial ONE (12:23)
[2020-02-06] MEDS ORDERED: Midazolam HCl 2 mg/2 ml Vial ONE (12:46)
[2020-02-06] MEDS ORDERED: Fentanyl 100 MCG/2 ML VIAL ONE (12:46)
[2020-02-06] MEDS ORDERED: Bacitracin Zinc Ointment 30 gm TUBE ONE (13:25)
--- NOTE | 2020-02-06 18:39 | OP ---
DATE OF PROCEDURE: 02/06/2020 PREOPERATIVE DIAGNOSIS: Scrotal sebaceous cyst x3, one larger one recently incised and drained in the office. POSTOPERATIVE DIAGNOSIS: Scrotal sebaceous cyst x3, one larger one recently incised and drained in the office. PROCEDURE PERFORMED: Excision of scrotal cyst x3. 2.5 cm incision, 3 cm incision, 4 cm incision. ANESTHESIA: General, local 0.5% Marcaine with epinephrine 30 mL, total volume used. DESCRIPTION OF PROCEDURE: The patient was taken to the operating room, where in the dorsal lithotomy position, scrotum, penis, perineum, buttocks, thighs prepared with Betadine and draped in routine fashion. The patient had three large scrotal cyst. The one that I have drained in the office recently has close healed. All three were excised with elliptical incision excising the sebaceous cyst. Skin and cyst removed. Hemostasis gained with cautery. Local anesthetic was infiltrated in the skin and subcutaneous tissue. Skin approximated with continuous suture of 3-0 chromic. The patient tolerated procedure well. Sterile dressing was applied. Job ID: [id number]
== END 2020-02-06 15:38 | disposition home or self-care (01) ==
LOC: SDC 09:46
PROVIDERS: ATTEND Specialist
PROC: 0VB5XZZ Excision of Scrotum, External Approach (ICD-10-PCS; principal; 2020-02-06)
DX: L72.0 Epidermal cyst (principal); L72.3 Sebaceous cyst; I25.2 Old myocardial infarction; F17.210 Nicotine dependence, cigarettes, uncomplicated; I10 Essential (primary) hypertension; I25.10 Atherosclerotic heart disease of native coronary artery without angina pectoris; Z85.048 Personal history of other malignant neoplasm of rectum, rectosigmoid junction, and anus; Z79.02 Long term (current) use of antithrombotics/antiplatelets; Z79.2 Long term (current) use of antibiotics; Z79.82 Long term (current) use of aspirin; Z79.899 Other long term (current) drug therapy; Z93.3 Colostomy status; Z95.5 Presence of coronary angioplasty implant and graft
CPT/HCPCS: 88304; J0690; J1885; J2250; J2704; J3010; S0020

== ENCOUNTER 2020-02-15 03:53 | Observation (INO) | payer OTHER ==
[2020-02-15] MEDS ORDERED: Acetaminophen 325 MG TAB PO PRN (05:10)
[2020-02-15] MEDS ORDERED: Ondansetron PF 4 MG/2 ML Vial IVP PRN (05:10)
[2020-02-15] MEDS ORDERED: Ondansetron ODT 4 MG TAB PO PRN (05:10)
--- NOTE | 2020-02-15 05:19 | PDOC.FPRHP ---
- History of Present Illness Chief Complaint: Chest pain History of Present Illness: Patient is a 49 year old male with a history of UT s/p 2 stents in 12/13 who presented to the [facility] ED with complains of chest pain and SOB. The patient says he awoke suddenly at ~ 2330 with sternal chest pain and SOB. Pain described as "being hit in the chest", rated a max 8/10, now 6/10. He describes the pain as similar to his previous UT. Patient reports the reason he called EMS was due to SOB rather than the chest pain. He took a nitro but cannot determine if the pain improved from the medication or time. The patient is currently being investigated for SAMMI. He reports a history of paroxysmal nocturnal dyspnea, apneic episodes and snoring nightly. He was last seen by his medical illustrator, Dr. Dsouza, 2 weeks ago. Patient notes that his medication regimen was altered from Losartan 100mg daily to Losartan/HCTZ 100/12.5 at that time. He denies headache, vision changes, sweating, nausea, abdominal pain and edema. He notes scrotal pain related to recent sabaceous cyst removal by Dr. Caldera on 02.05. ED Course: In the ED, patient received ASA 325. EKG showed no ST segment changes. CXR and CTA Chest completed, official read pending. Patient was transferred to [facility] due to lack of bed availability. - Allergies/Adverse Reactions Allergies Allergy/AdvReac Type Severity Reaction Status Date / Time No Known Allergies Allergy Verified 02/02/20 12:15 - Home Medications Medication Instructions Recorded Confirmed Type Ibuprofen [Motrin] 600 mg PO Q6H PRN tab 11/03/19 02/02/20 Rx Acetaminophen [Tylenol Extra 1,000 mg PO Q6H PRN tab 12/25/19 02/02/20 Rx Strength] Atorvastatin Calcium [Lipitor] 40 mg PO HS #90 tab 12/25/19 02/15/20 Rx Carvedilol [Coreg] 3.125 mg PO BID-WM #180 tab 12/25/19 02/02/20 Rx Clopidogrel Bisulfate [Plavix] 75 mg PO DAILY #90 tab 12/25/19 02/15/20 Rx Nicotine [Nicoderm CQ] 21 mg TOP Q24HR patch 12/25/19 02/02/20 Rx Nitroglycerin [Nitrostat] 0.4 mg SL Q5MIN PRN #30 tab 12/25/19 02/15/20 Rx Terbinafine [LamISIL] 250 mg PO DAILY 01/07/20 02/15/20 History Losartan Potassium [Cozaar] 100 mg PO DAILY 02/02/20 02/15/20 History Sulfamethoxazole/Trimethoprim 1 tab PO BID 02/02/20 02/02/20 History [Bactrim DS] buPROPion HCl [Bupropion Xl] 150 mg PO DAILY 02/02/20 02/15/20 History Acetaminophen W/ Codeine 1 tab PO Q4HR 02/15/20 02/15/20 History [Acetaminophen/Codeine #3] - History PMHx: HTN, CAD, UT s/p 2 stent, esophageal varices, colon CA s/p resection, radiation, chemo PSHx: Partial colon resection, esophageal varices repair, hernia repair Social: Reports drinking 1 6-pack of beer daily. Smokes 1 ppd. Denies drug use. - Review of Systems General: denies: fever/chills, night sweats, fatigue Eyes: denies: eye pain, vision changes ENT: denies: nasal congestion, rhinorrhea Respiratory: reports: shortness of breath (improved). denies: cough, congestion Cardiovascular: reports: chest pain (improved), paroxysmal nocturnal dyspnea. denies: palpitation, edema Gastrointestinal: denies: nausea, vomiting, abdominal pain Genitourinary: reports: other (scrotal pain). denies: dysuria, polyuria Skin: denies: rashes, jaundice Musculoskeletal: denies: pain, tenderness Neurological: denies: numbness, weakness Psychological: denies: anxiety, depression - Vital signs BP: [123/70] HR: [60] RR: [14] Tmax: [98.0] Pox: [97]% on [RA] Wt: [90.7kg] - Physical Exam Constitutional: NAD, awake, alert and oriented HEENT: normocephalic and atraumatic, conjunctiva clear, MMM Neck: FROM, trachea midline Chest: no-tender to palpation, no lesions Heart: RRR, normal S1/S2, no murmurs/rubs/gallops, pulses present, no edema Lungs: CTAB, no respiratory distress, good air movement Abdomen: soft, non-tender, bowel sounds present Musculoskeletal: normal structure, ROM grossly normal Neurological: no focal deficit Skin: no rash/lesions, no jaundice Heme/Lymphatic: no unusual bruising or bleeding Psychiatric: normal mood and affect FMR H&P: A/P - Problem List (1) Chest pain Current Visit: Yes Status: Acute Code(s): R07.9 - CHEST PAIN, UNSPECIFIED (2) Alcohol abuse Current Visit: Yes Status: Acute Code(s): F10.10 - ALCOHOL ABUSE, UNCOMPLICATED (3) Tobacco abuse Current Visit: Yes Status: Acute Code(s): Z72.0 - TOBACCO USE (4) Esophageal varices Current Visit: Yes Status: Acute Code(s): I85.00 - ESOPHAGEAL VARICES WITHOUT BLEEDING (5) CAD (coronary artery disease) Current Visit: No Status: Acute Code(s): I25.10 - ATHSCL HEART DISEASE OF [place] CORONARY ARTERY W/O ANG PCTRS (6) Colon cancer Current Visit: No Status: Acute Code(s): C18.9 - MALIGNANT NEOPLASM OF COLON, UNSPECIFIED (7) Hypokalemia Current Visit: No Status: Acute Code(s): E87.6 - HYPOKALEMIA - Plan Chest pain Recent UT s/p stent x 2 CAD with stent x 2 in 12/13. Chest pain ssociated with SOB, both improved. Initial trop 0.010. EKG reported NSR, no ST segment changes; however not available for review. CXR prelim showed no acute process. D-dimer elevated 1.44, however CTA Chest prelim showed no pulmonary embolism. Restenosis of stents unlikely given history. Aprn: Dr. Marina -Admit to tele obs -Reports taking medication as prescribed. Continue during admission. -Trend trop x 3 -Consider cardiology consult in the am Presumed SAMMI -Sleep study outpatient Chronic normocytic anemia Hgb 10.6, MCV 79 in outside ED -Monitor with am CBC Hypokalemia K 3.3 in outside ED -Monitor with am BMP -Supplement as indicated Scrotal sebaceous cyst s/p removal Completed 02/06/[address] Caldera -Continue home pain medication HTN -Continue home meds Esophageal varices s/p repair -Aware Colon CA s/p resection, radiation, chemo -Aware Hx alcohol abuse -Reports drinking 1 6-pack of beer per day -Monitor for withdrawal symptoms Tobacco abuse -Smokes 1 ppd -Smoking cessation encouraged PCP: Dr. Coleman Code: FULL DVT Ppx: Home plavix Dispo: Admit to tele obs FMR H&P: Upper Level - Plan Date/Time: 02/15/20 0518 IMary, have evaluated this patient and agree with findings/plan as outlined by leadership program intern resident. Pertinent changes/additions are listed here. 49 yo M with PMH CAD s/p UT, tobacco abuse, HTN, with 2 stents is transferred from [facility] and admitted for chest pain rule out. He reports awakening gasping for air with SOB and went to ED for evaluation. He also developed left sided chest pain. He took a nitro and was given ASA in ED. He is unsure was caused his chest pain to resolve. His pain concern was the SOB which has improved as well. He likely has sleep apnea but has not yet had ouptatient sleep study yet. 11/2019 STEMI with cath, stentx2 to LAD/diagonal 01/07/2020 admitted for syncopal episode though to be 2/2 HCTZ/losartan combo that was started outpatient 02/06/2020 he had a scrotal sebacous cyst drained by Dr. Caldera PE: Gen: NAD HEENT: Moist MM, no LAD Heart: RRR, no murmurs or extra sounds. Distal pulses 2+ Lungs: CTAB, no wheezing. No increased work of breathing Abd: soft, nontender, BS+, no masses or hernias Ext: no cyanosis or edema Skin: no rashes Psych: AOx3 Chest pain in setting of CAD with recent stents, now resolved - Hx CAD s/p stent x2 11/2019 - Initial EKG without ST changes but not available in chart for review - Trop neg x1 in outside ED, repeat ordered - Consider potential restenosis of stents, however patient history is not as convincing - Dr. Marina is his medical illustrator Likely sleep apnea- needs outpatient sleep study Recent scrotal sebaceous cyst removal by Dr. Caldera Elevated d-dimer but reported negative CTA in ED Anemia- chronic, improved compared to prior Hypokalemia- replace and recheck PCP: Barrera Attending: Dispo: admit to telemetry for observation. Repeat trop pending, consider cardiology consult in am
[2020-02-15 05:27] VITALS: BMI 27.1
[2020-02-15 06:29] LABS: Anion Gap 12 mmol/L (10-20); BUN (Urea Nitrogen) 7 mg/dL (8.9-20.6); Calc. Creatinine Clearance 157 mL/min (70-130); Calcium 8.9 mg/dL (7.8-10.44); Carbon Dioxide 27 mmol/L (22-29); Chloride 102 mmol/L (98-107); Estimated GFR-MDRD Greater than 90; Glucose 93 mg/dL (70-105); Potassium 4.2 mmol/L (3.5-5.1); Sodium 137 mmol/L (136-145)
[2020-02-15 06:37] LABS: Troponin I Less than 0.010 ng/mL (< 0.028)
[2020-02-15 06:48] LABS: #Eosinphils 0.1 thou/uL (0.0-0.7); #Lymphocytes 0.7 thou/uL (1.20-3.40); #Monocytes 0.6 thou/uL (0.11-0.59); #Neutrophils 3.4 thou/uL (1.40-6.50); %Basophils 0.3 % (0.0-1.0); %Eosinophils 1.3 % (0.0-10.0); %Lymphocytes 14.9 % (21.0-51.0); %Monocytes 12.7 % (0.0-10.0); %Neutrophils 70.8 % (42.0-75.0); Hemoglobin 12.1 g/dL (14.0-18.0); Mean Corpuscular HGB CONC 33.3 g/dL (32.0-36.0); Mean Corpuscular Hemoglobin 27.6 pg (27.0-31.0); Mean Corpuscular Volume 82.9 fL (78.0-98.0); Mean Platelet Volume 6.6 fL (7.4-10.4); Platelet Count 200 thou/uL (130-400); RBC Distribution Width 17.1 % (11.5-14.5); Red Blood Cell (RBC) Count 4.39 mill/uL (4.70-6.10); White Blood Cell (WBC) Count 4.9 thou/uL (4.8-10.8)
[2020-02-15] MEDS ORDERED: Carvedilol 3.125 MG TAB PO SCH (08:00)
[2020-02-15] MEDS: Acetaminophen/Codeine 30-300mg Tablet PO SCH ×3 (08:52→16:39)
[2020-02-15] MEDS ORDERED: Bupropion 150 MG XL TAB PO SCH (09:00)
[2020-02-15] MEDS ORDERED: Enoxaparin Sodium 40 MG/0.4 ML SYRINGE SC SCH (09:00)
[2020-02-15] MEDS ORDERED: FLU VACC QS2020-21(6MOS UP)/PF 60 MCG/0.5 ML SYRINGE IM ONE (09:00)
[2020-02-15] MEDS ORDERED: Losartan 25 MG TAB PO SCH (09:00)
[2020-02-15] MEDS ORDERED: Clopidogrel Bisulfate 75 MG TAB PO SCH (09:00)
[2020-02-15] MEDS ORDERED: Hydrochlorothiazide 25 MG TAB PO SCH (09:00)
[2020-02-15] MEDS ORDERED: Terbinafine 250 MG TAB PO SCH (09:00)
[2020-02-15] MEDS ORDERED: Diazepam 5 MG TAB PO PRN (10:16)
[2020-02-15] MEDS ORDERED: Diazepam 5 MG TAB PO SCH (10:30)
[2020-02-15] MEDS ORDERED: Thiamine HCl 200 MG/2 ML VIAL IM SCH (10:30)
[2020-02-15] MEDS ORDERED: Nicotine 14 MG PATCH TD SCH (13:00)
[2020-02-15] MEDS ORDERED: Aspirin 81 mg Enteric Coated Tablet PO SCH (13:15)
--- NOTE | 2020-02-15 14:20 | CON ---
DATE OF CONSULTATION: HISTORY OF PRESENT ILLNESS: The patient is a 49-year-old gentleman who presented for evaluation of dyspnea. The patient was seen several months ago after he had a syncopal episode. The patient underwent a cardiac evaluation and eventually cardiac catheterization. He was found to have a 40% lesion in the LAD and a 90% lesion in the first diagonal branch. He underwent PTCA and stent placement to this vessel. The patient has subsequently done well except for having another syncopal episode; a few weeks later, which was felt to be due to taking too much medication. The patient has had no recurrent chest discomfort. He was in usual state of health when he presented with increasing dyspnea. The patient states he has multiple episodes where he becomes short of breath. He denied having any chest discomfort. He also states that this occurs most often at night when he has sleep apnea. The patient denies having any type of chest discomfort with exertion. PAST MEDICAL HISTORY: 1. Hypertension. 2. Coronary artery disease. 3. Esophageal varices. 4. CAD. PAST SURGICAL HISTORY: Esophageal repair, and hernia surgery. SOCIAL HISTORY: Long history of tobacco abuse. Excessive use of alcohol. MEDICATIONS: On admission include, 1. Coreg 3.125 b.i.d. 2. Wellbutrin 150 daily. 3. Lamisil 250 daily. 4. Losartan 100 daily. 5. Lipitor 40 daily. 6. Plavix 75 daily. ALLERGIES: HE HAS NO KNOWN DRUG ALLERGIES. REVIEW OF SYSTEMS: Ten-point system otherwise unremarkable. No history of easy bruising or bleeding. PHYSICAL EXAMINATION: GENERAL: A well-developed gentleman, in no acute distress. VITAL SIGNS: Blood pressure 152/89. NECK: No jugular venous distention. LUNGS: Coarse breath sounds bilateral with a few scattered wheezes. HEART: Regular rate and rhythm. Normal S1, S2. No murmurs. ABDOMEN: Nondistended. He has a colostomy bag. EXTREMITIES: Show trace edema. LABORATORY RESULTS: Sodium 137, potassium 4.2, chloride 102, bicarbonate 27, BUN 7, creatinine 0.73, glucose was 90. Troponin is less than 0.01. White blood cell count 4.9, hemoglobin 12.1, hematocrit 36.5, platelets are 200. Troponin was less than 0.01. EKG was pending. IMPRESSION: 1. Dyspnea, most likely secondary to chronic obstructive pulmonary disease exacerbation. 2. History of coronary artery disease, status post PTCA and stent placement of the diagonal branch in the left anterior descending artery. 3. Hypertension. 4. Dyslipidemia. 5. History of renal cell carcinoma. 6. Sleep apnea. 7. Tobacco abuse. This gentleman presents with dyspnea, most likely due to chronic obstructive pulmonary disease exacerbation. We would recommend discontinuing the patient's beta-ruben. From a Cardiac standpoint, he needs to be restarted on aspirin. We will follow this patient with you through his hospitalization. Job ID: [id number] [facility]ITAL[facility]ing
[2020-02-15 16:44] VITALS: BP 154/84; TEMP 98.4
[2020-02-15] MEDS ORDERED: Atorvastatin Calcium 40 MG TAB PO SCH (21:00)
--- NOTE | 2020-02-15 23:39 | DIS ---
DATE OF ADMISSION: 02/15/2020 DATE OF DISCHARGE: 02/15/2020 RESIDENT: Erinn Lopez MD. ADMITTING/ATTENDING: Dr. Valentino Mandujano. DISCHARGE ATTENDING: Dr. Jonathan Ocampo. CONSULTS: Cardiology (Dr. Monsivais). PROCEDURES: None. PRIMARY DIAGNOSIS: Chest pain. SECONDARY DIAGNOSES: 1. History of myocardial infarction with stents in November 2019. 2. Possible obstructive sleep apnea. 3. History of esophageal varices. 4. History of colon cancer, status post radiation/chemo/resection. 5. Tobacco abuse. DISCHARGE MEDICATIONS: 1. Ibuprofen 600 mg p.o. q.6h p.r.n. 2. Tylenol 1000 mg p.o. q.6h p.r.n. 3. Atorvastatin 40 mg p.o. at bedtime. 4. Coreg 3.125 mg p.o. b.i.d. WM. 5. Plavix 75 mg p.o. daily. 6. Nitroglycerin 0.4 mg sublingual q.5 minutes p.r.n. 7. Terbinafine 250 mg p.o. daily. 8. Losartan 100 mg p.o. daily. 9. Bupropion 150 mg p.o. daily. Discontinued medications: None. HISTORY OF PRESENT ILLNESS/HOSPITAL COURSE: This is a 49-year-old male, who presented with complaints of chest pain and shortness of breath, that awoke him from sleep at 2330. The pain resembled the pain he experienced with his previous MN, so he called EMS. His chest pain had resolved by the time he reached the ED. The patient is being investigated for SAMMI and has a history of episodes such as these, with paroxysmal nocturnal dyspnea, apneic episodes, and snoring. He was last seen by a perch mender, Dr. Dsouza, 2 weeks ago. Troponins were negative x3 and EKG was unremarkable. Cardiology was consulted given his recent cardiac history, but felt this episode was not cardiac in origin and that he was safe to be discharged. DISPOSITION: Stable. DISCHARGE INSTRUCTIONS: Location: Home. Diet: Heart healthy. Activity: As tolerated. Followup: The patient is encouraged to follow up with his PCP, Dr. Coleman, for continued evaluation of SAMMI. Job ID: [id number] [facility]
[2020-02-16] MEDS ORDERED: Diazepam 5 MG TAB PO PRN (04:00)
[2020-02-16] MEDS ORDERED: Aspirin 81 mg Enteric Coated Tablet PO SCH (09:00)
[2020-02-16] MEDS ORDERED: Folic Acid 1 MG TAB PO SCH (09:00)
[2020-02-16] MEDS ORDERED: Multivitamin W/ Minerals 1 TAB PO SCH (09:00)
[2020-02-16] MEDS ORDERED: Thiamine 100 MG TAB PO SCH (09:00)
[2020-02-16] MEDS ORDERED: Magnesium Oxide 400 MG TAB PO SCH (09:00)
--- NOTE | 2020-02-18 12:02 | EKG ---
Test Reason : Blood Pressure : / mmHG Vent. Rate : 059 BPM Atrial Rate : 059 BPM P-R Int : 148 ms QRS Dur : 098 ms QT Int : 426 ms P-R-T Axes : -10 068 068 degrees QTc Int : 421 ms Sinus bradycardia Otherwise normal ECG When compared with ECG of 01-FEB-2020 12:14, Vent. rate has decreased BY 31 BPM Confirmed by RONAN CROWLEY (2) on 02/18/2020 12:01:49 PM Referred By: RYAN Confirmed By:RONAN CROWLEY
== END 2020-02-15 17:37 | disposition home or self-care (01) ==
LOC: OBSVTOIN 03:53 → INTOOBSV 03:53 → 2NO 03:53
PROVIDERS: ADMIT Emergency Medicine; ATTEND Emergency Medicine
DX: R07.9 Chest pain, unspecified (principal); R06.02 Shortness of breath; I25.2 Old myocardial infarction; F17.210 Nicotine dependence, cigarettes, uncomplicated; I25.10 Atherosclerotic heart disease of native coronary artery without angina pectoris; F10.10 Alcohol abuse, uncomplicated; E87.6 Hypokalemia; D53.9 Nutritional anemia, unspecified; Z85.038 Personal history of other malignant neoplasm of large intestine; Z79.02 Long term (current) use of antithrombotics/antiplatelets; Z79.899 Other long term (current) drug therapy; Z90.49 Acquired absence of other specified parts of digestive tract; Z95.5 Presence of coronary angioplasty implant and graft
CPT/HCPCS: 36415; 90471; 90662; 93005; 93010; 96372; G0008; G0378; J3411

== ENCOUNTER 2020-10-16 08:56 | Outpatient (CLI) | payer OTHER | END 2020-10-16 08:57 | disposition home or self-care (01) | LOC: BICCT 08:56 | PROVIDERS: ATTEND Internal Medicine Hematology & Oncology | DX: C20 Malignant neoplasm of rectum (principal); K76.0 Fatty (change of) liver, not elsewhere classified; N32.89 Other specified disorders of bladder; K76.9 Liver disease, unspecified; Z90.49 Acquired absence of other specified parts of digestive tract | CPT/HCPCS: 36415; 71260; 74177; 80053; 82378 ==

== ENCOUNTER 2021-04-08 07:32 | Outpatient (CLI) | payer OTHER | END 2021-04-08 07:33 | disposition home or self-care (01) | LOC: BICCT 07:32 | PROVIDERS: ATTEND Internal Medicine Hematology & Oncology | DX: C20 Malignant neoplasm of rectum (principal); K76.0 Fatty (change of) liver, not elsewhere classified; J98.4 Other disorders of lung; N32.89 Other specified disorders of bladder | CPT/HCPCS: 71260; 74177; 80053; 82378; 85025 ==

== ENCOUNTER 2021-06-04 08:41 | Outpatient (CLI) | payer OTHER, MEDICAID | END 2021-06-04 08:42 | disposition home or self-care (01) | LOC: RAD 08:41 | PROVIDERS: ATTEND Internal Medicine Critical Care Medicine | DX: R06.00 Dyspnea, unspecified (principal) | CPT/HCPCS: 71046 ==

== ENCOUNTER 2021-09-23 09:14 | Outpatient (CLI) | payer OTHER ==
[2021-09-23] MEDS ORDERED: ISOVUE-370 76% 1 ML ONE (09:55)
== END 2021-09-23 09:15 | disposition home or self-care (01) ==
LOC: BICCT 09:14
PROVIDERS: ATTEND Internal Medicine Hematology & Oncology
DX: C20 Malignant neoplasm of rectum (principal); N28.89 Other specified disorders of kidney and ureter; K76.0 Fatty (change of) liver, not elsewhere classified; N28.1 Cyst of kidney, acquired; N28.9 Disorder of kidney and ureter, unspecified; M79.89 Other specified soft tissue disorders; Z98.890 Other specified postprocedural states; Z90.49 Acquired absence of other specified parts of digestive tract
CPT/HCPCS: 71260; 74178

== ENCOUNTER 2021-10-22 08:40 | Outpatient (CLI) | payer OTHER | END 2021-10-22 08:41 | disposition home or self-care (01) | LOC: TBSIIMAG 08:40 | PROVIDERS: ATTEND Neurological Surgery | DX: H47.10 Unspecified papilledema (principal) | CPT/HCPCS: 70551; 70553 ==

== ENCOUNTER 2021-11-05 09:04 | Outpatient (CLI) | payer MEDICARE, OTHER | END 2021-11-05 09:05 | disposition home or self-care (01) | LOC: TBSIIMAG 09:04 | PROVIDERS: ATTEND Neurological Surgery | DX: H47.10 Unspecified papilledema (principal) | CPT/HCPCS: 70552 ==

== ENCOUNTER 2021-12-12 09:01 | Outpatient (CLI) | payer MEDICARE, MEDICAID ==
[2021-12-12 10:20] LABS: Hemoglobin 14.2 g/dL (13.5-17.5); Mean Corpuscular HGB CONC 34.2 g/dL (32.0-36.0); Mean Corpuscular Hemoglobin 30.1 pg (27.0-33.0); Mean Corpuscular Volume 88.1 fl (81.2-95.1); Mean Platelet Volume 9.2 fl (7.4-10.4); Platelet Count 190 10x3/uL (150-450); RBC Distribution Width 13.7 % (11.5-14.5); Red Blood Cell (RBC) Count 4.71 10x6/uL (4.32-5.72); White Blood Cell (WBC) Count 6.2 10x3/uL (3.5-10.5)
[2021-12-12 10:47] LABS: Anion Gap 14 mmol/L (10-20); BUN (Urea Nitrogen) 4 mg/dL (8.4-25.7); Calc. Creatinine Clearance 0 mL/min (70-130); Calcium 9.7 mg/dL (7.8-10.44); Carbon Dioxide 28 mmol/L (22-29); Chloride 96 mmol/L (98-107); Estimated GFR 108; Glucose 145 mg/dL (70-105); Potassium 4.2 mmol/L (3.5-5.1); Sodium 134 mmol/L (136-145)
== END 2021-12-12 09:02 | disposition home or self-care (01) ==
LOC: LABBT 09:01
PROVIDERS: ATTEND Neurological Surgery
DX: Z01.818 Encounter for other preprocedural examination (principal); M54.16 Radiculopathy, lumbar region; Z20.822 Contact with and (suspected) exposure to COVID-19
CPT/HCPCS: 80048; 85027; 87811; 93005; 93010

== ENCOUNTER 2025-03-11 10:39 | Emergency (ER) | payer OTHER ==
[2025-03-11 11:17] LABS: #Basophils 0.03 10x3/uL (0.0-0.2); #Eosinophils Less than 0.03 10x3/uL (0.0-0.7); #Monocytes 0.71 10x3/uL (0.11-0.59); #Neutrophils 4.10 10x3/uL (1.40-6.50); %Basophils 0.5 % (0.0-1.0); %Eosinophils 0.0 % (0.0-10.0); %Lymphocytes 14.0 % (21.0-51.0); %Monocytes 12.5 % (0.0-10.0); %Neutrophils 72.5 % (42.0-75.0); Hematocrit 32.9 % (42.0-52.0); Hemoglobin 10.9 g/dL (14.0-18.0); Mean Corpuscular Hemoglobin 25.9 pg (27.0-31.0); Mean Corpuscular Volume 78.1 fL (78.0-98.0); Platelet Count 192 10x3/uL (130-400); Red Blood Cell (RBC) Count 4.21 mill/uL (4.70-6.10); White Blood Cell (WBC) Count 5.66 10x3/uL (4.8-10.8)
[2025-03-11 11:31] LABS: INR-International Normal Ratio 1.1; PTT 28.4 sec (22.9-36.1); Prothrombin Time 14.3 sec (12.0-14.7)
[2025-03-11 11:34] LABS: D-Dimer Test 1.47 mcg/mL (0.27-0.43)
[2025-03-11 11:36] LABS: Anion Gap 17 mmol/L (10-20); BUN (Urea Nitrogen) 6 mg/dL (8.4-25.7); Calc. Creatinine Clearance 0 mL/min (70-130); Calcium 8.8 mg/dL (7.8-10.44); Carbon Dioxide 24 mmol/L (22-29); Chloride 91 mmol/L (98-107); Glucose 118 mg/dL (70-105); Potassium 3.6 mmol/L (3.5-5.1); Sodium 128 mmol/L (136-145)
[2025-03-11 11:37] LABS: ALT (SGPT) 26 U/L (Less than 45); AST (SGOT) 40 U/L (11-34); Albumin 3.3 g/dL (3.1-4.5); Alkaline Phosphatase 125 U/L (40-110); Bilirubin, Total 0.6 mg/dL (0.3-1.2); Globulin 3.4 g/dL (2.4-3.5)
[2025-03-11] MEDS ORDERED: Iopamidol-370 76% 500 ML MDV (1 ML CHARGE) ONE (12:30)
== END 2025-03-11 14:43 | disposition home or self-care (01) ==
LOC: ERS 10:39
DX: R07.89 Other chest pain (principal); I25.2 Old myocardial infarction; I25.10 Atherosclerotic heart disease of native coronary artery without angina pectoris; E78.5 Hyperlipidemia, unspecified; K21.9 Gastro-esophageal reflux disease without esophagitis; F17.210 Nicotine dependence, cigarettes, uncomplicated; Z95.5 Presence of coronary angioplasty implant and graft; Z79.84 Long term (current) use of oral hypoglycemic drugs; Z79.82 Long term (current) use of aspirin; Z79.02 Long term (current) use of antithrombotics/antiplatelets; Z79.899 Other long term (current) drug therapy; R60.0 Localized edema
CPT/HCPCS: 71045; 71275; 80053; 83880; 84484 ×2; 85025; 85379; 85610; 85730; 93005; 93970; 94760; 99285; Q9967